=== PATIENT | female | born 1945 | race Caucasian/White ===

== ENCOUNTER 2023-03-01 11:35 | Emergency (ER) | payer OTHER, MEDICAID ==
[~2023-03-01] VITALS: Ht 160 cm; Wt 81.6 kg
[2023-03-01 11:49] VITALS: BP 131/81
[2023-03-01] MEDS ORDERED: POTA10CE86 PO (11:58)
[2023-03-01] MEDS ORDERED: AMLO10TA PO (11:58)
[2023-03-01] MEDS ORDERED: VALS160T2 PO (11:58)
[2023-03-01] MEDS ORDERED: ATOR20TA PO (11:58)
[2023-03-01] MEDS ORDERED: METF-346 PO (12:03)
--- NOTE | 2023-03-01 12:10 | NUR ---
Patient was wheelchair assisted to bed 1.
[2023-03-01] MEDS ORDERED: KETOROLAC 30 MG/ML VIAL IM ONE (13:10)
[2023-03-01] MEDS ORDERED: LIDOCAINE 5% 1 EA PATCH TP ONE (13:10)
--- NOTE | 2023-03-01 13:12 | NUR ---
Alma quintana in ED - 03/01/23 at 1340 by [email or web address] asleep in bed, pain resolving with toradol iv
[2023-03-01] MEDS ORDERED: CYCL-711 PO (13:40)
[2023-03-01] MEDS ORDERED: IBUP-2213 PO (13:40)
[2023-03-01] MEDS ORDERED: ACET-10509 PO (13:40)
[2023-03-01] MEDS ORDERED: LIDO4CRE18 TP (13:40)
--- NOTE | 2023-03-01 13:40 | NUR ---
able to stand and transfer to bed. repositons in bed without problems
[2023-03-01 14:18] VITALS: BP 131/81
--- NOTE | 2023-03-01 14:24 | NUR ---
Patient discharged with v/s stable. Written and verbal after care instructions given and explained. Patient alert, oriented and verbalized understanding of instructions. Ambulatory with steady gait. All questions addressed prior to discharge. ID band removed. Patient advised to follow up with PMD. Rx of flexeril, motrin, lidocaine given. Patient educated on indication of medication including possible reaction and side effects. Opportunity to ask questions provided and answered.
== END 2023-03-01 14:18 | disposition home or self-care (01) ==
LOC: MED 11:35
DX: M54.50 Low back pain, unspecified (principal); R51.9 Headache, unspecified; M25.561 Pain in right knee; M25.562 Pain in left knee; I10 Essential (primary) hypertension; Z79.899 Other long term (current) drug therapy
CPT/HCPCS: 96372; 99283; J1885